=== PATIENT | male | born 1965 | race African-American/Black ===

== ENCOUNTER 2021-03-18 11:56 | Emergency (ER) | payer MEDICAID ==
[~2021-03-18] VITALS: Ht 177.8 cm; Wt 82.0 kg
[2021-03-18] MEDS ORDERED: HYDROCODONE/ACETAMINOPHEN 5/325MG TABLET PO ONE (15:45)
[2021-03-18] MEDS ORDERED: NAPR-681 MT (18:05)
[2021-03-18] MEDS ORDERED: ACET15SO5 LEFT EAR (18:16)
[2021-03-18] MEDS ORDERED: CARB-173 EACH EAR (18:16)
[2021-03-18 18:23] VITALS: BP 150/78
== END 2021-03-18 18:23 | disposition home or self-care (01) ==
LOC: ER 11:56
DX: M79.89 Other specified soft tissue disorders (principal); H61.22 Impacted cerumen, left ear; I10 Essential (primary) hypertension; E11.9 Type 2 diabetes mellitus without complications
CPT/HCPCS: 73080; 73090; 73110; 73130; 93971; 99284; A4565

== ENCOUNTER 2021-11-18 15:27 | Emergency (ER) | payer SELFPAY ==
[~2021-11-18] VITALS: Ht 177.8 cm; Wt 79.9 kg
[~2021-11-18 15:27] MED LIST: AMLO5TAB88 PO; ASPI-1406 MT; ATOR20TA PO; INSU100I28 SQ; LISI20TA31 PO; METF-414 MT
[2021-11-18 15:49] VITALS: BP 138/70
[2021-11-18] MEDS ORDERED: CARBAMIDE PEROXIDE 6.5% OTIC SOLN 15ML LEFT EAR ONE (16:15)
[2021-11-18] MEDS ORDERED: CARBAMIDE PEROXIDE 6.5% OTIC SOLN 15ML LEFT EAR NR (17:00)
[2021-11-18] MEDS ORDERED: METF-414 MT (18:06)
[2021-11-18] MEDS ORDERED: GLIP5TAB12 MT (18:07)
[2021-11-18] MEDS ORDERED: AMLO10TA80 MT (18:07)
[2021-11-18] MEDS ORDERED: ATOR20TA PO (18:07)
[2021-11-18] MEDS ORDERED: ASPI-1406 MT (18:07)
== END 2021-11-18 18:18 | disposition home or self-care (01) ==
LOC: ER 15:27
DX: T16.2XXA Foreign body in left ear, initial encounter (principal); X58.XXXA Exposure to other specified factors, initial encounter; Y93.89 Activity, other specified; Y92.89 Other specified places as the place of occurrence of the external cause; Y99.8 Other external cause status; E11.9 Type 2 diabetes mellitus without complications; I10 Essential (primary) hypertension; E78.5 Hyperlipidemia, unspecified; Z86.73 Personal history of transient ischemic attack (TIA), and cerebral infarction without residual deficits; Z76.0 Encounter for issue of repeat prescription
CPT/HCPCS: 99283

== ENCOUNTER 2022-03-20 10:07 | Inpatient (IN) | payer MEDICAID ==
[~2022-03-20] VITALS: Ht 177.8 cm; Wt 81.6 kg
[~2022-03-20 10:07] MED LIST changes: +AMLO10TA80 MT; +GLIP5TAB12 MT
[2022-03-20] MEDS ORDERED: TRAMADOL 50MG TABLET PO ONE (12:15)
[2022-03-20] MEDS ORDERED: KETOROLAC 30MG/ML VIAL IV ONE (12:15)
[2022-03-20 12:33] LABS: BASOPHILS % 1.2 % (0.0-2.0); EOSINOPHILS % 4.5 % (0.0-5.0); HEMATOCRIT. 39.9 % (42.0-52.0); LYMPHOCYTES % 24.2 % (20.0-50.0); MEAN CORPUSCULAR HEMOGLOBIN 26.5 pg (28.0-32.0); MEAN CORPUSCULAR VOLUME 81.3 fL (80.0-94.0); MEAN PLATELET VOLUME 8.7 fl (7.4-10.4); MONOCYTES % 8.7 % (2.0-8.0); NEUTROPHILS % 61.4 % (40.0-76.0); PLATELET 247 x1000/uL (130-400); RED BLOOD CELL COUNT 4.91 mill/uL (4.7-6.1); RED CELL DISTRIBUTION WIDTH 15.2 % (11.6-14.6)
[2022-03-20 13:56] LABS: CHLORIDE 107 mEq/L (98-107)
[2022-03-20] MEDS ORDERED: METOPROLOL TARTRATE 25MG TABLET PO NR (15:15)
[2022-03-20] MEDS ORDERED: ASPIRIN 325MG EC TABLET PO NR (15:15)
[2022-03-20] MEDS ORDERED: DOCUSATE SODIUM 100MG CAPSULE PO PRN (19:45)
[2022-03-20] MEDS ORDERED: CLONIDINE 0.1MG TABLET PO PRN (19:45)
[2022-03-20] MEDS ORDERED: NITROGLYCERIN 0.4MG TABLET SL SL PRN (19:45)
[2022-03-20] MEDS ORDERED: DEXTROSE 50% WATER 50ML SYRINGE IV PRN (19:45)
[2022-03-20] MEDS ORDERED: GUAIFENESIN 200MG/10ML SUGAR FREE UDC PO PRN (19:45)
[2022-03-20] MEDS ORDERED: IPRATROPIUM/ALBUTEROL 0.5-3(2.5)MG/3ML NEB NEB PRN (19:45)
[2022-03-20] MEDS ORDERED: MAGNESIUM/ALUMINUM HYDROXIDE/SIMETHICONE 30ML UDC PO PRN (19:45)
[2022-03-20] MEDS ORDERED: ONDANSETRON HCL 4MG/2ML INJ IV PRN (19:45)
[2022-03-20] MEDS ORDERED: ZOLPIDEM TARTRATE 5MG TABLET PO PRN (19:45)
[2022-03-20] MEDS ORDERED: ACETAMINOPHEN 325MG TABLET PO PRN ×2 (19:45)
[2022-03-20 20:30] VITALS: BP 133/58
[2022-03-20] MEDS: BLOOD SUGAR DIAGNOSTIC STRIP TEST SCH (21:00)
[2022-03-20] MEDS: INSULIN LISPRO 100 UNITS/ML SUBCUT SCH (21:00)
[2022-03-20] MEDS: ENOXAPARIN 40MG/0.4ML SYR SUBCUT SCH (22:30)
[2022-03-20] MEDS: FAMOTIDINE 20MG TABLET PO SCH (22:31)
[2022-03-20] MEDS: LISINOPRIL 20MG TABLET PO SCH (22:31)
[2022-03-21] VITALS: BP 129/80
[2022-03-21 00:07] LABS: CREATINE KINASE MB FRACTION 1.9 ng/mL (0.5-3.6)
[2022-03-21 04:00] VITALS: BP 117/76
[2022-03-21] MEDS: INSULIN LISPRO 100 UNITS/ML SUBCUT SCH ×4 (06:33→21:00)
[2022-03-21] MEDS: BLOOD SUGAR DIAGNOSTIC STRIP TEST SCH ×4 (06:33→21:19)
[2022-03-21 07:38] LABS: BASOPHILS % 0.9 % (0.0-2.0); EOSINOPHILS % 5.4 % (0.0-5.0); HEMATOCRIT. 40.3 % (42.0-52.0); HEMOGLOBIN. 13.1 g/dL (14.0-18.0); LYMPHOCYTES % 31.1 % (20.0-50.0); MEAN CORPUSCULAR HEMOGLOBIN 26.3 pg (28.0-32.0); MEAN CORPUSCULAR VOLUME 80.9 fL (80.0-94.0); MEAN PLATELET VOLUME 8.8 fl (7.4-10.4); MONOCYTES % 11.4 % (2.0-8.0); NEUTROPHILS % 51.2 % (40.0-76.0); PLATELET 233 x1000/uL (130-400); RED BLOOD CELL COUNT 4.98 mill/uL (4.7-6.1); RED CELL DISTRIBUTION WIDTH 15.1 % (11.6-14.6)
[2022-03-21 08:00] VITALS: BP 129/71
[2022-03-21 08:07] LABS: CHLORIDE 106 mEq/L (98-107)
[2022-03-21 08:38] LABS: CREATINE KINASE 106 IU/L (39-308); CREATINE KINASE MB FRACTION 2.2 ng/mL (0.5-3.6)
[2022-03-21] MEDS ORDERED: ASPIRIN 325MG EC TABLET PO SCH (09:00)
[2022-03-21] MEDS: LISINOPRIL 20MG TABLET PO SCH ×2 (09:13→21:17)
[2022-03-21] MEDS: AMLODIPINE 10MG TABLET PO SCH (09:13)
[2022-03-21] MEDS: FAMOTIDINE 20MG TABLET PO SCH ×2 (09:13→21:17)
[2022-03-21] MEDS: KETOROLAC 15MG/ML VIAL IV PRN ×2 (09:40→21:22)
[2022-03-21 12:00] VITALS: BP 128/70
[2022-03-21] MEDS ORDERED: METOPROLOL TARTRATE 5MG/5ML VIAL IV PRN (15:45)
[2022-03-21 16:00] VITALS: BP 123/66
[2022-03-21 20:00] VITALS: BP 123/55
[2022-03-21] MEDS: ATORVASTATIN CALCIUM 40MG TABLET PO SCH (21:17)
[2022-03-21] MEDS: ENOXAPARIN 40MG/0.4ML SYR SUBCUT SCH (21:18)
[2022-03-22] VITALS: BP 130/66
[2022-03-22 04:00] VITALS: BP 114/56
[2022-03-22] MEDS: BLOOD SUGAR DIAGNOSTIC STRIP TEST SCH ×4 (06:07→21:00)
[2022-03-22] MEDS: INSULIN LISPRO 100 UNITS/ML SUBCUT SCH ×4 (06:07→21:00)
[2022-03-22] MEDS ORDERED: NITROGLYCERIN SPRAY/4.9GM CAN TL ONE (07:15)
[2022-03-22 08:00] VITALS: BP 130/65
[2022-03-22] MEDS ORDERED: IOHEXOL-350 100 ML BOTTLE ONE (09:33)
[2022-03-22] MEDS: AMLODIPINE 10MG TABLET PO SCH (09:44)
[2022-03-22] MEDS: FAMOTIDINE 20MG TABLET PO SCH ×2 (09:44→21:49)
[2022-03-22] MEDS: LISINOPRIL 20MG TABLET PO SCH ×2 (09:45→21:49)
[2022-03-22] MEDS: ASPIRIN 81MG EC TABLET PO SCH (09:45)
[2022-03-22] MEDS: KETOROLAC 15MG/ML VIAL IV PRN ×2 (09:46→22:05)
[2022-03-22 11:30] LABS: *AMPHETAMINES SCREEN URINE NEGATIVE (NEGATIVE); *BARBITURATES SCREEN URINE NEGATIVE (NEGATIVE); *BENZODIAZEPINES SCREEN URINE NEGATIVE (NEGATIVE); *COCAINE SCREEN URINE NEGATIVE (NEGATIVE); CANNABINOID URINE SCREEN NEGATIVE (NEGATIVE); METHADONE URINE SCREEN NEGATIVE (NEGATIVE); OPIATES URINE SCREEN NEGATIVE (NEGATIVE); PHENCYCLIDINE URINE SCREEN NEGATIVE (NEGATIVE)
[2022-03-22 12:00] VITALS: BP 130/65
[2022-03-22] MEDS ORDERED: SODIUM CHLORIDE 0.45% 250 ML IV ONE (14:30)
[2022-03-22 16:00] VITALS: BP 130/65
[2022-03-22 20:00] VITALS: BP 134/64
[2022-03-22] MEDS: ATORVASTATIN CALCIUM 40MG TABLET PO SCH (21:49)
[2022-03-22] MEDS: ENOXAPARIN 40MG/0.4ML SYR SUBCUT SCH (21:50)
[2022-03-23] VITALS: BP 104/53
[2022-03-23 04:00] VITALS: BP 129/64
[2022-03-23] MEDS: INSULIN LISPRO 100 UNITS/ML SUBCUT SCH ×3 (06:42→17:13)
[2022-03-23] MEDS: BLOOD SUGAR DIAGNOSTIC STRIP TEST SCH ×3 (06:42→17:13)
[2022-03-23 06:56] LABS: CHLORIDE 108 mEq/L (98-107)
[2022-03-23] MEDS ORDERED: DIPHENHYDRAMINE 50MG/ML VIAL ONE (07:55)
[2022-03-23] MEDS ORDERED: FENTANYL CITRATE/PF 50MCG/ML 2ML VIAL ONE (07:55)
[2022-03-23] MEDS ORDERED: MIDAZOLAM HCL 2 MG/2 ML VIAL ONE (07:55)
[2022-03-23] MEDS ORDERED: IODIXANOL 320MG/ML 100 ML BOTTLE IV ONE (07:56)
[2022-03-23] MEDS ORDERED: HEPARIN 1000 UNITS/ML 10ML ONE (07:56)
[2022-03-23] MEDS ORDERED: LIDOCAINE HCL/PF 1% 10 MG/ML 5ML VIAL ONE (07:57)
[2022-03-23] MEDS ORDERED: VERAPAMIL HCL 2.5 MG/1 ML 2ML VIAL IV ONE (08:01)
[2022-03-23 08:02] VITALS: BP 132/59
[2022-03-23] MEDS ORDERED: HEPARIN SODIUM 1,000 UNIT/1ML VIAL IV ONE (08:42)
[2022-03-23] MEDS ORDERED: ASPIRIN 325MG TABLET ONE (08:54)
[2022-03-23] MEDS ORDERED: CLOPIDOGREL 75MG TABLET ONE (08:54)
[2022-03-23] MEDS ORDERED: ATROPINE SULFATE 1MG/10ML SYR IV PRN (09:00)
[2022-03-23] MEDS: FAMOTIDINE 20MG TABLET PO SCH (09:00)
[2022-03-23] MEDS: ASPIRIN 81MG EC TABLET PO SCH (09:00)
[2022-03-23] MEDS: LISINOPRIL 20MG TABLET PO SCH (09:00)
[2022-03-23] MEDS: AMLODIPINE 10MG TABLET PO SCH (09:00)
[2022-03-23] MEDS ORDERED: SODIUM CHLORIDE 0.45% 500 ML IV SCH (10:00)
[2022-03-23] MEDS ORDERED: METF-414 MT (14:42)
[2022-03-23] MEDS ORDERED: LISI20TA31 PO (14:42)
[2022-03-23] MEDS ORDERED: ASPI-1406 MT (14:43)
[2022-03-23] MEDS ORDERED: FAMO20TA8 PO (14:43)
[2022-03-23] MEDS ORDERED: CLOP75TA33 MT (14:43)
[2022-03-23] MEDS ORDERED: LIP40 PO (14:43)
[2022-03-23] MEDS ORDERED: AMLO10TA80 MT (14:43)
[2022-03-23] MEDS ORDERED: GLIP5TAB12 MT (14:43)
[2022-03-23 16:43] VITALS: BP 133/61
[2022-03-23 18:17] VITALS: BP 133/61
== END 2022-03-23 20:15 | disposition home or self-care (01) | DRG 174 ==
LOC: ER 10:07 → 8WST 15:57 → EDBEDREQ 16:00 → EDBEDREQSVC 16:00 → EDBEDREQTM 16:00 → ENRESERV 18:16
PROVIDERS: ADMIT Internal Medicine; ATTEND Internal Medicine
PROC: 027034Z Dilation of Coronary Artery, One Artery with Drug-eluting Intraluminal Device, Percutaneous Approach (ICD-10-PCS; principal; 2022-03-23)
PROC: 4A023N7 Measurement of Cardiac Sampling and Pressure, Left Heart, Percutaneous Approach (ICD-10-PCS; 2022-03-23)
PROC: B211YZZ Fluoroscopy of Multiple Coronary Arteries using Other Contrast (ICD-10-PCS; 2022-03-23)
DX: I21.4 Non-ST elevation (NSTEMI) myocardial infarction (principal); D63.8 Anemia in other chronic diseases classified elsewhere; E11.9 Type 2 diabetes mellitus without complications; E78.00 Pure hypercholesterolemia, unspecified; I10 Essential (primary) hypertension; Z86.73 Personal history of transient ischemic attack (TIA), and cerebral infarction without residual deficits; Z20.822 Contact with and (suspected) exposure to COVID-19; Z79.899 Other long term (current) drug therapy; Z79.4 Long term (current) use of insulin
CPT/HCPCS: 36415; 71045; 75571; 80048; 80053; 80061; 80305; 82550; 82553; 82607; 82746; 82962; 83036; 83540; 83550; 83735; 83880; 84100; 84443; 84484; 85025; 85347; 87426; 92928; 93005; 93306; 93458; 93970; 99291; A6261; C1769; C1874; C1887; C1893; C9803; J1200; J1644; J1650; J1885; J2250; J3010; J3490; Q9967

== ENCOUNTER 2022-06-28 13:32 | Emergency (ER) | payer MEDICAID ==
[~2022-06-28] VITALS: Ht 180.3 cm; Wt 91.0 kg
[~2022-06-28 13:32] MED LIST changes: -AMLO5TAB88 PO; -ATOR20TA PO; +CLOP75TA33 MT; +FAMO20TA8 PO; -INSU100I28 SQ; +LIP40 PO
[2022-06-28 13:54] VITALS: BP 123/67
[2022-06-28 18:14] LABS: BASOPHILS % 0.8 % (0.0-2.0); HEMATOCRIT. 41.5 % (42.0-52.0); HEMOGLOBIN. 13.6 g/dL (14.0-18.0); LYMPHOCYTES % 26.1 % (20.0-50.0); MEAN CORPUSCULAR HEMOGLOBIN 26.2 pg (28.0-32.0); MEAN CORPUSCULAR VOLUME 79.9 fL (80.0-94.0); MEAN PLATELET VOLUME 7.8 fl (7.4-10.4); NEUTROPHILS % 58.1 % (40.0-76.0); PLATELET 254 x1000/uL (130-400); RED CELL DISTRIBUTION WIDTH 16.6 % (11.6-14.6)
[2022-06-28 18:21] LABS: CHLORIDE 104 mEq/L (98-107)
[2022-06-28] MEDS ORDERED: MECLIZINE 25MG TABLET PO ONE (19:00)
== END 2022-06-28 21:00 | disposition home or self-care (01) ==
LOC: ER 13:32
DX: R42 Dizziness and giddiness (principal); E11.9 Type 2 diabetes mellitus without complications; I10 Essential (primary) hypertension; I25.10 Atherosclerotic heart disease of native coronary artery without angina pectoris; Z86.73 Personal history of transient ischemic attack (TIA), and cerebral infarction without residual deficits; Z98.61 Coronary angioplasty status; Z79.84 Long term (current) use of oral hypoglycemic drugs; Z79.82 Long term (current) use of aspirin
CPT/HCPCS: 36415; 70450; 71045; 80053; 83880; 84484; 85025; 93005; 99285; J8597